=== PATIENT | male | born 1980 | race Caucasian/White ===

== ENCOUNTER 2020-01-22 18:19 | Emergency (ER) | payer SELFPAY ==
[2020-01-22 18:37] VITALS: BP 148/81; PULSE 110; RESP 16; TEMP 37; O2SAT 100
--- NOTE | 2020-01-22 18:42 | ED.SKABFB ---
HPI - Skin/Abscess/Foreign Bdy General Chief complaint: Skin/Abscess/Foreign Body Stated complaint: POISON TORI RASH Time Seen by Provider: 01/22/20 18:42 Source: patient Mode of arrival: ambulatory Limitations: no limitations History of Present Illness HPI narrative: Dwight Burris is a 39 yo male with no PMH was exposed to poison tori or sumac on Thursday, broke out on arms and face and abdomen has been taking 100 mg of Benadryl twice daily, right eye almost swollen shut, blisters on both arms. Feels miserable, looks miserable Related Data Allergies Allergy/AdvReac Type Severity Reaction Status Date / Time No Known Allergies Allergy Verified 01/22/20 18:45 Review of Systems Review of Systems: Narrative: CONSTITUTIONAL: Denies fever, chills, sweats. EYES: Denies visual changes, redness, discharge. ENT: Denies rhinorrhea, congestion, sore throat, otalgia. CARDIOVASCULAR: Denies chest pain, palpitations, edema. RESPIRATORY: Denies dyspnea, wheezing, cough GASTROINTESTINAL: Denies abdominal pain, nausea, vomiting, diarrhea. GENITOURINARY: Denies dysuria, hematuria, abnormal discharge SKIN: Poison tori or sumac on both arms and on face with right swollen eye NEUROLOGIC: Denies numbness, or focal weakness. PSYCHIATRIC: Denies anxiety or depression. PMFSH Past Medical History Medical History No active medical problems Family History Family History Other No active medical problems Social History Social History (Updated 01/22/20 @ 19:12 by Camelia Almanza CNP) Smoking status: Never smoker Alcohol intake: never Gender identity (if verbalized by the patient): Male Comments At time of signature, I agree with nursing past medical, surgical, social and family history. There is no relevant family history pertinent to the presenting complaint. Patient has a PCP; blood pressure is elevated due to situation and being in express care with severe poison tori- will follow-up with PCP Exam Narrative: Exam Narrative: GENERAL: This is a well-nourished, well-developed patient, in moderate distress. HEAD: normocephalic, atraumatic. EYES: Sclera clear/white. Vision is grossly intact. Right periorbital edema sclera is clear EARS: External ears normal, . Hearing grossly intact. NOSE: External nose normal without nasal discharge, nares without redness, no rhinorrhea. THROAT: Mucous membranes moist, NECK: Neck supple, non-tender CARDIOVASCULAR: Tachycardic rate and rhythm without murmurs, gallops, or rubs. RESPIRATORY: Clear to auscultation. Breath sounds equal bilaterally. No wheezes, rales, or rhonchi. GASTROINTESTINAL: Abdomen soft, non-tender, SKIN: warm, intact rash on upper torso and face; blisters on arms; swelling of face; patient can swallow but has been sleeping a lot NEURO: awake, alert, and oriented to person, place and time. There were no obvious focal neurologic abnormalities. Steady gait EXTREMITIES: Normal range of motion. BACK: Nontender without deformity Course Course Emergency Course: Given Solu-Medrol and Pepcid here, patient has been taking Benadryl Given prednisone, Pepcid, Benadryl to take over the next 4 to 5 days Discussed watching all of his close shoes and if hands touched the sumac or poison tori Keep skin clean and dry Follow-up with PCP Vital Signs Vital signs: Vital Signs Temperature 98.6 F 01/22/20 18:37 Pulse Rate 110 H 01/22/20 18:37 Respiratory Rate 16 01/22/20 18:37 Blood Pressure 148/81 H 01/22/20 18:37 Pulse Oximetry 100 01/22/20 18:37 Temperature 98.6 F 01/22/20 18:37 Pulse Rate 110 H 01/22/20 18:37 Respiratory Rate 16 01/22/20 18:37 Blood Pressure 148/81 H 01/22/20 18:37 Pulse Oximetry 100 01/22/20 18:37 MDM - Skin/Abscess/Foreign Bdy Differential Diagnosis Differential diagnosis: Likely urticaria, cellulitis, insect bites,
[2020-01-22] MEDS: methylPREDNISolone SOD SUCC 125 MG VIAL IM (18:51)
[2020-01-22] MEDS: FAMOTIDINE 20 MG TABLET PO (18:51)
== END 2020-01-22 19:23 | disposition home or self-care (01) ==
PROVIDERS: Emergency Provider Nurse Practitioner; PCP Emergency Medicine
DX: L23.7 Allergic contact dermatitis due to plants, except food (principal)
CPT/HCPCS: 96372; 99213; A9270; G0463; J2930

== ENCOUNTER 2024-06-20 16:11 | Emergency (ER) | payer OTHER, SELFPAY ==
--- NOTE | ~2024-06-20 | XR_ITS ---
EXAM: XR ankle RT min 3V, XR tibia fibula RT 2V DATE: 06/20/2024 19:03 HISTORY: fall, unable to ambulate . COMPARISON: None available. FINDINGS: Normal mineralization. Oblique fracture of the distal right fibula, at the level of the david int line, with 4 mm posterior displacement. Mild widening of the medial gutter. No lytic or blastic l esion. Joint spaces are maintained. No erosion or periosteal change. Ankle joint effusion. Soft tissu e swelling about the ankle. IMPRESSION: Mild medial joint space widening as can be seen with ligamentous injury. Oblique mildly d isplaced distal right fibular fracture (Reich B). Reviewed, dictated and finalized at location [facility] IMPRESSION: Mild medial joint space widening as can be seen with ligamentous in jury. Oblique mildly displaced distal right fibular fracture (Reich B).
[2024-06-20 16:38] VITALS: BP 170/91; PULSE 86; RESP 18; TEMP 36.3; O2SAT 100
--- NOTE | 2024-06-20 18:41 | ED.LOWEXIN ---
HPI - Extremity Injury (Lower) General Chief Complaint: Extremity Injury, Lower Stated Complaint: right lower leg pain - fell Time Seen by Provider: 06/20/24 18:41 Focused HPI: Patient is a 43 y/o male who presents to the ED with c/o R lower leg pain. Patient reports he tripped on the edge of a sidewalk and fell. States he feels like his R lower leg snapped when he fell. C/o pain to his R lower leg and ankle. States he is unable to ambulate due to the pain. States he had to use a 2x4 as a crutch to get to the ED. Has not taken anything for pain. Denies any other injuries. Denies HI/LOC. Reports chronic swelling in BLE GENERAL: Well-appearing, well-nourished, and in no acute distress. HEAD: Normocephalic, atraumatic. CHEST: Clear to auscultation. ?No respiratory distress. HEART: Regular rate and rhythm.? MSK: TTP throughout R lower leg, lateral malleoli, R lateral fibula. Diffuse symmetric edema in BLE. NEURO: ?Alert and oriented x3. Patient screened in triage and initial orders placed.? ?Additional care and disposition to be based upon?diagnostic testing and treatment. Source: patient Mode of arrival: ambulatory Limitations: no limitations History of Present Illness HPI Narrative: Patient is a 43 y/o male who presents to the ED with c/o R lower leg pain. Patient reports he tripped on the edge of a sidewalk and fell. States he feels like his R lower leg snapped when he fell. C/o pain to his R lower leg and ankle. States he is unable to ambulate due to the pain. States he had to use a 2x4 as a crutch to get to the ED. Has not taken anything for pain. Denies any other injuries. Denies HI/LOC. Reports chronic swelling in BLE Related Data Allergies Allergy/AdvReac Type Severity Reaction Status Date / Time No Known Allergies Allergy Verified 01/22/20 18:45 Review of Systems Review of Systems: All systems reviewed & are unremarkable except as noted in HPI. All systems reviewed & are unremarkable except as noted in HPI and below PMFSH Past Medical History Medical History No active medical problems Family History Family History Other No active medical problems Social History Social History Smoking status: Never smoker Alcohol intake: never Gender identity (if verbalized by the patient): Male Exam Narrative: GENERAL: Well-appearing, obese with BMI of 35.0, and in no acute distress. HEAD: Normocephalic, atraumatic. CHEST: Clear to auscultation. ?No respiratory distress. HEART: Regular rate and rhythm.? MSK: TTP throughout R lower leg, lateral malleoli of ankle, R lateral distal fibular region. Sensation intact. Diffuse symmetric edema in BLE. Pedal pulses intact. SKIN: Clean, dry, intact NEURO: ?Alert and oriented x3. PSYCHIATRIC: Normal mood and affect. Course Vital Signs Vital signs: Vital Signs Temperature 97.3 F L 06/20/24 16:38 Pulse Rate 86 06/20/24 16:38 Respiratory Rate 18 06/20/24 16:38 Blood Pressure 170/91 H 06/20/24 16:38 Pulse Oximetry 100 06/20/24 16:38 Temperature 97.3 F L 06/20/24 16:38 Pulse Rate 86 06/20/24 16:38 Respiratory Rate 18 06/20/24 16:38 Blood Pressure 170/91 H 06/20/24 16:38 Pulse Oximetry 100 06/20/24 16:38 MDM - Extremity Injury (Lower) MDM Narrative Medical decision making narrative: MSE by AUGUSTINE in triage. Care resumed by myself. Patient?s injury is consistent with musculoskeletal etiology. No signs of neurologic or vascular compromise on physical examination. Compartments are soft without signs of compartment syndrome. X-ray imaging showing distal fibular fracture. Also showing possible ligamentous injury with medial joint space widening. Consistent with clinical picture and injury. Patient updated on imaging results. Given pain medication in the ED. Placed in short leg posterior splint. Given crutches. Advised will need to follow-up with orthopedics for further evaluation management of fracture. Discussed RICE therapy, strict return precautions. Patient in agreement with plan. Feels comfortable going home. Has a ride from the ED. Discharged in stable condition. Medical Records Attestation: I reviewed the patient's medical records. Imaging Data Attestation: I personally reviewed and interpreted this imaging study as follows: Radiologist's impression: ITS Impressions Ankle X-Ray 06/20/24 19:10 IMPRESSION: Mild medial joint space widening as can be seen with ligamentous injury. Oblique mildly displaced distal right fibular fracture (Reich B). Tibia/Fibula X-Ray 06/20/24 19:10 IMPRESSION: Mild medial joint space widening as can be seen with ligamentous injury. Oblique mildly displaced distal right fibular fracture (Reich B). Discharge Plan Discharge Clinical Impression: Fall from ground level Fracture of fibula Qualifiers: Encounter type: initial encounter Fibula location: distal Fracture type: closed Fracture morphology: unspecified fracture morphology Laterality: right Qualified Code(s): S82.831A - Other fracture of upper and lower end of right fibula, initial encounter for closed fracture Ankle joint effusion Qualifiers: Laterality: right Qualified Code(s): M25.471 - Effusion, right ankle Patient Disposition: Home, Self-Care Condition: Stable Instructions: Antibiotic Form, Ankle Fracture (ED), Ankle Sprain (ED), Splint Care (ED) Additional Instructions: Call orthopedic office tomorrow to make follow up appointment for further evaluation of fracture. Utilize crutches for assistance with walking. Avoid weight-bearing on right leg. Wear splint until seen by orthopedics. Keep leg elevated as much as possible, use ice to ankle frequently. Continue Tylenol and ibuprofen as needed for pain. Utilize [place] as needed for more severe pain. Return to the ED if you experience recurrent injury, worsening pain or swelling, numbness, or any other symptoms of concern. Patient Language: Estonian Prescriptions: New hydrocodone-acetaminophen 5-325 mg tablet 1 tablet PO Q6H PRN (Reason: pain) Qty: 15 0RF No Action prednisone 20 mg tablet 40 mg PO DAILY Qty: 10 0RF famotidine [Pepcid] 20 mg tablet 20 mg PO BID Qty: 10 0RF Benadryl 2 % gel 1 applic TOPICAL TID PRN (Reason: itching) Qty: 103 0RF Follow-up/Referrals: Yefri Mohr MD [Primary Care Provider] - Mohinder Huynh MD [Physician] - (ORTHOPEDICS) Time of Disposition: 19:40
[2024-06-20] MEDS: HYDROcodone/acetaminophen (*CRX) 5-325 MG TABLET 1 TAB PO (18:45)
--- NOTE | 2024-06-23 15:41 | PC.NURSE ---
LATE ENTRY This note is being entered to document information to the patient's record. The following information was omitted on [06/20/24], by [Uma Zayas RN]. Short leg posterior splint applied to Right leg per tech.
== END 2024-06-20 20:02 | disposition home or self-care (01) ==
PROVIDERS: Emergency Provider Physician Assistant; PCP Emergency Medicine
DX: S82.831A Other fracture of upper and lower end of right fibula, initial encounter for closed fracture (principal); M25.471 Effusion, right ankle; W18.09XA Striking against other object with subsequent fall, initial encounter
CPT/HCPCS: 29515; 73590; 73610; 99284; A9270

== ENCOUNTER 2024-06-28 00:43 | Day surgery (SDC) | payer OTHER, SELFPAY ==
[2024-06-23 12:20] VITALS: BMI 36.0
--- NOTE | 2024-06-23 12:21 | PC.NURSE ---
Report to the Outpatient Waiting Room, entrance under the green pavilion located off [facility], at time _1230_ on date _[id number]_. Planned Procedure Time: _230pm_.? Time changes happen often and if your time is changed the preop area will call you the afternoon before. - You and your visitor will be asked to self-screen and do not enter if you have any COVID symptoms. Please call surgeon if you need to reschedule. - A mask is optional within the hospital at this time. Patients may have clear liquids (water, carbonated beverages, clear teas, apple juice) until 3 hours prior to surgery with a maximum of 20 ounces. - No food from midnight until time of surgery and no smoking, or chewing tobacco (or any form of nicotine). No chewing gum, candy or mints. Take only the following medications with a SIP of water on the morning of surgery: __Hydrocodone or Acetaminophen if needed for pain. DO NOT STOP ANY OF YOUR OTHER PRESCRIPTION MEDICATIONS PRIOR TO SURGERY EXCEPT THE FOLLOWING Hold all vitamins and supplements for 3 days per anesthesiologist. Medications to discontinue per physician ___None Date to take last dose Please no make-up, nail bruneian, hairspray, perfume, deodorant, or body powder the day of surgery.? No jewelry (including any body piercings) or valuables the day of surgery, leave them at home.? Please take a shower or bath the night before, or the morning of, surgery with an antibacterial soap.? Wear comfortable, loose fitting clothing.? - Jewelry must be removed prior to entering the operating room.? Rings and piercings that are not removed may be cut off. - The hospital will not accept responsibility for valuables.? - Please leave all valuables, including medications, at home the day of surgery. If you are going home after surgery, a licensed hazmat cdl driver must drive you home.? - NO public transportation without another adult if you receive anesthesia. - We recommend that an adult stay with you for 24 hours following discharge. - We also recommend that you do not drive, make important decision, drink alcoholic beverages, or take any drugs that were not prescribed by your health care provider for at least 24 hours after your discharge time. Follow any additional instructions given to you from your surgeon. Telephone instructions given to _Fred___and asked if any additional questions and then verbalized understanding. Patient advised to call surgeon office or pre surgery nurse liaison [phone] if any additional questions.
[2024-06-28] VITALS (8 sets, daily range): BP systolic 127–155; BP diastolic 70–84; PULSE 55–80; RESP 10–14; TEMP 36.1–36.6; O2SAT 97–100
--- NOTE | ~2024-06-28 | XR_ITS ---
INTRAOPERATIVE FLUOROSCOPY: CLINICAL HISTORY: 43 years old Male; ORIF RIGHT DISTAL FIBULA PROCEDURE COMMENTS: Limited intraoperative fluoroscopy of the right ankle was performed. CUMULATIVE DOSE: 3.4 mGy FLUOROSCOPY TIME: 48.4 seconds FINDINGS/IMPRESSION: Please refer to operative note for further details. Reviewed, dictated and finalized at location [facility]. [facility]
--- NOTE | 2024-06-28 09:54 | WPDHPUPDATE1 ---
History and Physical Update Update Date/Time: 06/28/24 09:54 History and Physical has been reviewed, including an updated exam of the patient. There are NO changes in the patient's condition. Risks, benefits, and alternatives have been discussed and questions answered. Patient agrees to proceed with procedure.
--- NOTE | 2024-06-28 12:55 | WPDANESEPPF ---
Anes - Initial Pre Proc Eval Procedure: Operation Date: 06/28/24 14:30 Proposed Procedures p Open Reduction Internal Fixation Right Distal Fibula - Mohinder Huynh MD Date/Time: 06/28/24 12:55 Surgeon: Mohinder Huynh MD Pre Op Diagnosis: Right Distal Fibula Fx Patient Data Age: 43 Gender: M Height: 1.88 m Weight: 127.3 kg Allergies Allergy/AdvReac Type Severity Reaction Status Date / Time No Known Allergies Allergy Verified 06/23/24 12:14 Home Medications ?Medication ?Instructions ?Recorded ?Confirmed ?Type diphenhydramine HCl 2 % topical 1 applic topical TID PRN itching 01/22/20 06/23/24 Rx gel (Benadryl) #103 mL acetaminophen 325 mg tablet 650 mg PO Q6H PRN fever or pain 06/23/24 06/23/24 History oxycodone-acetaminophen 5 mg-325 1 - 2 tablet PO Q4-6H PRN pain 7 06/28/24 Rx mg tablet days #30 tabs Patient hx anesthesia problems: none Family hx anesthesia problems: none Results Review: All pre-operative results and documents have been reviewed as part of the pre-operative evaluation. [facility] [place] Past Medical History Medical History (Updated 06/28/24 @ 12:55 by Erwin Bueno MD) Obesity Family History Family History Other No active medical problems Social History Social History Smoking status: Never smoker Alcohol intake: never Gender identity (if verbalized by the patient): Male Anes - Eval Final PreProcedure Day of Procedure 06/28/24 12:55 Patient weight: obese Heart: regular rate and rhythm Lungs: clear to auscultation Airway: Mallampati scale class II Neurological: alert and oriented Last oral intake: >/= 8 hours ASA classification: II Emergent: no Anesthetic plan: proceed Anesthesia type and monitoring: general LMA and standard monitoring Results Review: All pre-operative results and documents have been reviewed as part of the pre-operative evaluation. Informed Consent: The patient's anesthetic plan and its attendant risks and benefits were discussed with the patient/family/POA. Questions were solicited and answers provided to the satisfaction of the patient/family/POA.
[2024-06-28] MEDS: ACETAMINOPHEN 500 MG TABLET 1000 MG PO (13:00)
[2024-06-28] MEDS: KETOROLAC 15 MG/ML VIAL (*BKC) IV PUSH (13:00)
[2024-06-28] MEDS: LACTATED RINGERS 1,000 ML 30 ML IV CONT (13:00)
[2024-06-28] MEDS: ceFAZolin 3 GM/D5W 100 ML 100 ML IVPB (13:04)
[2024-06-28] MEDS: BUPIVACAINE/EPINEPHRINE 0.5% 50 ML VIAL 20 ML INFILTRATE (13:37)
--- NOTE | 2024-06-28 16:17 | W.PM.PROC2 ---
Procedure Note - Detailed Date of Procedure 06/28/24 Pre-op Diagnosis Right ankle distal fibula fracture Post-op Diagnosis Other (1. Right ankle displaced distal fibular fracture 2. Right ankle tib fib syndesmosis sprain) Procedure Performed 1. ORIF right ankle lateral malleolus 2. ORIF right ankle tib fib syndesmosis with suture button Surgeon Mohinder Huynh MD Anesthesia General Findings The fracture was mildly displaced and shortened. After stable anatomic fixation the ankle mortise was stressed and found to be gapping slightly. This suggested a moderate syndesmosis injury. This was treated with a single tight rope suture button across the tib-fib syndesmosis. Patient has chronic lower extremity edema. Swelling from the injury was much improved and the skin had good wrinkles prior to the start of the procedure. Closure was without undue tension. Description of Procedure A general anesthetic was administered. The limb was prepped and draped in the usual sterile fashion with a well-padded tourniquet high on the thigh. A bump was placed under the hip. The limb was exsanguinated and the tourniquet inflated to 300 millimeters of mercury during the procedure. A longitudinal incision was created at the distal fibula. Careful dissection was carried down to bone. Perineal nerve branches were protected. The fracture was carefully exposed. Callus and debris was irrigated from the wound. The fracture was brought out to length. Reduction was accomplished with the reduction forceps. The fixation plate was contoured. Fixation was performed with a combination of cortical and cancellous screws. The ankle mortise was stressed and found to be slightly unstable. There was some notable gapping at the medial clear space. Through the plate the drill was placed across the syndesmosis into the tibia. The button was inserted and deployed on the medial aspect of the tibia. The suture limbs were secured and tensioned. Fluoroscopy was used throughout the procedure to confirm anatomic reduction and appropriate placement of the implants. The tourniquet was released. Meticulous hemostasis was obtained. Wound was closed in layers with 2-0 Vicryl suture 3-0 Monocryl suture and 3-0 nylon mattress sutures. A sterile dressing with well padded splint was applied. The patient was extubated and brought to the recovery room in stable condition. There were no complications. Implants Arthrex lateral fibula anatomic plate. Arthrex tight rope suture button Estimated Blood Loss 20 Drains No Packing No Pathology None sent Complications No immediate complications Condition Stable Disposition PACU [facility] Billing Surgery - Charge Forward: Surgery Billing
== END 2024-06-28 16:31 | disposition home or self-care (01) ==
PROVIDERS: PCP Emergency Medicine; Visit Provider Orthopaedic Surgery
PROC: (CPT 27792; principal; 2024-06-28 14:30)
DX: S82.61XA Displaced fracture of lateral malleolus of right fibula, initial encounter for closed fracture (principal); X50.1XXA Overexertion from prolonged static or awkward postures, initial encounter; E66.9 Obesity, unspecified; Z68.38 Body mass index [BMI] 38.0-38.9, adult; Z79.891 Long term (current) use of opiate analgesic
CPT/HCPCS: 27792; 27829; 99199; A9270; C1713; J0690; J1100; J1885; J2250; J2405; J2704; J3010; J7120

== ENCOUNTER 2024-07-28 23:02 | Emergency (ER) | payer OTHER, SELFPAY ==
--- NOTE | ~2024-07-28 | XR_ITS ---
XR knee LT 3V Ordering provider: Ashutosh Dee MD History: . fall, pain . Comparison: October 24, 2009 FINDINGS: BONES: No acute fracture or dislocation. JOINT SPACES: Normal. SOFT TISSUES: Normal. IMPRESSION: No acute osseous abnormality left knee. Reviewed, dictated and finalized at location A.
[2024-07-28 23:05] VITALS: BP 168/87; PULSE 95; RESP 18; TEMP 36.6; O2SAT 99
--- NOTE | 2024-07-29 01:04 | ED.LOWEXIN ---
HPI - Extremity Injury (Lower) General Chief Complaint: Extremity Injury, Lower Stated Complaint: leg injury Time Seen by Provider: 07/29/24 00:34 History of Present Illness HPI Narrative: Patient is a 43-year-old male who presents to the ER with left knee pain. He reports he fractured his right ankle approximately 1 month ago so he is using crutches now. Today patient has crutches slid out from under him and his left knee buckled. He is unsure of the mechanism of injury, but he thinks he ?twisted it. Patient reports he has difficulty moving his left lower extremity since the fall. He denies any left pain, recent fevers, previous injuries to the site, new edema. Related Data Home Medications ?Medication ?Instructions ?Recorded ?Confirmed ?Last Taken ?Type acetaminophen 325 mg tablet 650 mg PO Q6H PRN fever or pain 06/23/24 07/11/24 Unknown History hydrocodone 5 mg-acetaminophen 325 1 tablet PO PRN 06/28/24 07/11/24 06/28/24 History mg tablet Allergies Allergy/AdvReac Type Severity Reaction Status Date / Time No Known Allergies Allergy Verified 07/28/24 23:03 Review of Systems Review of Systems: All systems reviewed & are unremarkable except as noted in HPI and below PMFSH Past Medical History Medical History Obesity Family History Family History Other No active medical problems Social History Social History Smoking status: Never smoker Alcohol intake: never Do You Feel Safe in your Home?: Yes Lack of Transportation: YES Lack of Food: Sometimes True Current Housing: I Have Housing Concerned About Future Housing: YES Difficulty Paying Gas/Electric Bills: Decline to Answer Difficulty Paying for Meds: Decline to Answer Currently Unemployed: No Education: High School Diploma/GED Difficulty w/ Childcare or Family Care: No Living arrangements: with family Gender identity (if verbalized by the patient): Male Spiritual care concerns: No Exam Narrative: GENERAL: Disheveled, well-nourished, non-toxic, in no acute distress. HEAD: Normocephalic, atraumatic. NECK: Supple. No adenopathy, no masses. RESPIRATORY: Airway patent, respirations nonlabored. Clear to auscultation bilaterally, no rales, rhonchi, wheezing. CARDIOVASCULAR: Regular rate and rhythm without murmurs, rubs, or gallops. Peripheral pulses 2+ and equal bilaterally. ABDOMINAL: Soft, nontender, nondistended, no hepatosplenomegaly. Normoactive BS. MUSCULOSKELETAL: Moves all extremities. No noticeable L lower extremity swelling. No pain with foot flexion/extension. Negative Gabriel's sign. No pain with external or internal rotation. Endorses pain below patella with L knee flexion, decreased ROM. SKIN: Warm, dry, normal color. No rashes. NEURO: A&O X3. Speech clear. Cranial nerves II-XII grossly intact. PSYCHIATRIC: Flat affect. Normal interaction. Course Vital Signs Vital signs: Vital Signs Temperature 36.6 C 07/28/24 23:05 Pulse Rate 95 07/28/24 23:05 Respiratory Rate 18 07/28/24 23:05 Blood Pressure 168/87 H 07/28/24 23:05 Pulse Oximetry 99 07/28/24 23:05 Oxygen Delivery Room Air 07/28/24 23:05 Temperature 36.6 C 07/28/24 23:05 Pulse Rate 89 07/29/24 01:37 Respiratory Rate 16 07/29/24 01:37 Blood Pressure 156/80 H 07/29/24 01:37 Pulse Oximetry 98 07/29/24 01:37 Oxygen Delivery Room Air 07/28/24 23:05 MDM - Extremity Injury (Lower) MDM Narrative Medical decision making narrative: Patient is a 43-year-old male who presents to the ER with the pain. He reports he had fractured his right ankle approximately 1 month ago so he is using crutches. Today patient has crutches slid out from under him and his left knee buckled. He is unsure of the mechanism of injury, but he thinks he ?twisted it. Patient reports he has difficulty moving his left lower extremity since the fall. He denies any left pain, recent fevers, previous injuries to the site, new edema. Labs Ordered: None necessary Imaging Ordered: Left knee x-ray Medications Ordered: Toradol 60 mg IM, [place] p.o. Results: Left knee x-ray indicates No acute osseous abnormality left knee. Diagnosis: Left knee strain Consults: orthopedics (pt sees Dr. Huynh outpatient) Patient Education/Shared MDM: Results of x-ray shared with patient. He endorses improvement following medication administration. Patient strongly advised to call his orthopedic surgeon tomorrow morning. He will be discharged home with prescription for Naproxen. Strict return precautions provided. Patient verbalized understanding is in agreement with plan. Vital signs stable at time of discharge. All questions answered. Differential Diagnosis Differential diagnosis: Likely acute internal derangement of knee and other (patellar fracture, knee strain, knee sprain) Imaging Data Attestation: I personally reviewed and interpreted this imaging study as follows: Radiologist's impression: Impressions Knee X-Ray 07/28/24 23:28 IMPRESSION: No acute osseous abnormality left knee. Discharge Plan Discharge Clinical Impression: Strain of left patellar tendon, Acute pain of left knee Patient Disposition: Home, Self-Care Condition: Stable Instructions: Antibiotic Form Additional Instructions: Please return to the ER with an worsening symptoms. Call your orthopedic surgeon tomorrow for follow-up. Take all medications as prescribed. Patient Language: Palestinian Prescriptions: New naproxen 500 mg tablet 500 mg PO BID PRN (Reason: pain) Qty: 20 0RF No Action Benadryl 2 % gel 1 applic TOPICAL TID PRN (Reason: itching) Qty: 103 0RF acetaminophen 325 mg tablet 650 mg PO Q6H PRN (Reason: fever or pain) hydrocodone-acetaminophen 5-325 mg tablet 1 tablet PO PRN aspirin 81 mg tablet,delayed release (DR/EC) 81 mg PO BID 14 Days Qty: 28 0RF oxycodone-acetaminophen 5-325 mg tablet 1 - 2 tablet PO Q4-6H PRN (Reason: pain) 7 Days Qty: 30 0RF Follow-up/Referrals: Yefri Mohr MD [Primary Care Provider] - Stand Alone Forms: Work/School Release IP Time of Disposition: 01:18
[2024-07-29] MEDS: KETOROLAC (*BKC) 60 MG/2 ML VIAL IM (01:19)
[2024-07-29] MEDS: HYDROcodone/acetaminophen (*CRX) 5-325 MG TABLET 1 TAB PO (01:19)
[2024-07-29 01:37] VITALS: BP 156/80; PULSE 89; RESP 16; O2SAT 98
== END 2024-07-29 01:44 | disposition home or self-care (01) ==
PROVIDERS: Emergency Provider Registered Nurse; PCP Emergency Medicine
DX: S76.112A Strain of left quadriceps muscle, fascia and tendon, initial encounter (principal); E66.9 Obesity, unspecified; Z68.31 Body mass index [BMI] 31.0-31.9, adult; X50.9XXA Other and unspecified overexertion or strenuous movements or postures, initial encounter
CPT/HCPCS: 73562; 96372; 99283; A9270; J1885

== ENCOUNTER 2024-08-28 10:50 | Outpatient (CLI) | payer OTHER, SELFPAY ==
--- NOTE | ~2024-08-28 | MR_ITS ---
MRI of the left knee Clinical history: Quadriceps strain Technique: Coronal proton density and proton density-weighted images, sagittal proton-density and T2 fat-sat images, and axial proton-density fat-saturated images were acquired. Findings: Anterior and posterior cruciate ligaments are intact. Medial collateral ligament and the la teral collateral ligament complex are intact. Popliteus tendon is intact. Medial and lateral menisci are intact, without evidence of tear. Probable mild chondral malacia patella present. Remaining articular cartilage is well preserved throu ghout the knee. Bone marrow signals are unremarkable. There is near complete rupture of the distal quadriceps tendon, with a few anterior fibers which may remain intact. There is wavy morphology of the patellar tendon, with associated patella baja. There i s moderate to large joint effusion with extensive surrounding soft tissue edema about the prepatellar region and about the distal quadriceps tendon. There is diffuse subcutaneous soft tissue edema about the knee and distal thigh as well. No Espinoza's cyst. Impression: High-grade, near-complete tear/rupture of the distal quadriceps tendon, with a few anterior fibers wh ich appear to remain intact. Associated patella baja with wavy morphology of the patellar tendon. Moderate to large joint effusion with extensive soft tissue edema and fluid in the prepatellar region and about the torn quadriceps tendon. Cruciate ligaments and menisci are intact. Reviewed, dictated and finalized at [facility]. Impression: High-grade, near-complete tear/rupture of the distal quadriceps tendon, with a few anterior fibers which appear to remain intact. Associated patella baja with wavy morphology of the patellar tendon. Moderate to large joint effusion with extensive soft tissue edema and fluid in the prepatellar region and about the torn quadriceps tendon. Cruciate ligaments and menisci are intact.
== END 2024-08-28 10:51 | disposition home or self-care (01) ==
PROVIDERS: PCP Emergency Medicine; Visit Provider Orthopaedic Surgery
DX: S76.112A Strain of left quadriceps muscle, fascia and tendon, initial encounter (principal); M25.462 Effusion, left knee
CPT/HCPCS: 73721

== ENCOUNTER 2024-09-07 12:36 | Outpatient (CLI) | payer OTHER, SELFPAY ==
--- NOTE | ~2024-09-07 | XR_ITS ---
XR ankle RT min 3V Ordering provider: LYNN Roca History: . Z98.890 - Other specified postprocedural states . Comparison: July 11, 2024 FINDINGS: BONES: Postoperative changes in the medial and lateral malleoli. Healing fracture seen posteriorly in the tibia and fibula JOINT SPACES: Normal. SOFT TISSUES: Soft tissue swelling over the medial and lateral malleoli. IMPRESSION: Postoperative changes with healing fracture in the distal ulna. Healing fracture in the distal tibia is also possible. Reviewed, dictated and finalized at location A. IMPRESSION: Postoperative changes with healing fracture in the distal ulna. Healing fractur e in the distal tibia is also possible.
== END 2024-09-07 12:37 | disposition home or self-care (01) ==
PROVIDERS: PCP Emergency Medicine; Visit Provider Physician Assistant Surgical
DX: Z98.890 Other specified postprocedural states (principal); Z87.81 Personal history of (healed) traumatic fracture
CPT/HCPCS: 73610

== ENCOUNTER 2024-09-15 01:54 | Day surgery (SDC) | payer OTHER, SELFPAY ==
[2024-09-09 13:32] VITALS: BMI 38.6
--- NOTE | 2024-09-09 13:39 | PC.NURSE ---
Report to the Outpatient Waiting Room, entrance under the green pavilion located off [facility], at time _1130_ on date _[id number]_. Planned Procedure Time: _130pm_.? Time changes happen often and if your time is changed the preop area will call you the afternoon before. - You and your visitor will be asked to self-screen and do not enter if you have any COVID symptoms. Please call surgeon if you need to reschedule. - A mask is optional within the hospital at this time. Patients may have clear liquids (water, carbonated beverages, clear teas, apple juice) until 3 hours prior to surgery with a maximum of 20 ounces. - No food from midnight until time of surgery and no smoking, or chewing tobacco (or any form of nicotine). No chewing gum, candy or mints. Take only the following medications with a SIP of water on the morning of surgery: __Pain pill if needed. DO NOT STOP ANY OF YOUR OTHER PRESCRIPTION MEDICATIONS PRIOR TO SURGERY EXCEPT THE FOLLOWING Hold all vitamins and supplements for 3 days per anesthesiologist. Medications to discontinue per physician ___Naproxen____ Date to take last dose____stop now.___ Please no make-up, nail bulgarian, hairspray, perfume, deodorant, or body powder the day of surgery.? No jewelry (including any body piercings) or valuables the day of surgery, leave them at home.? Please take a shower or bath the night before, or the morning of, surgery with an antibacterial soap.? Wear comfortable, loose fitting clothing.? - Jewelry must be removed prior to entering the operating room.? Rings and piercings that are not removed may be cut off. - The hospital will not accept responsibility for valuables.? - Please leave all valuables, including medications, at home the day of surgery. If you are going home after surgery, a licensed lumber stacker driver must drive you home.? - NO public transportation without another adult if you receive anesthesia. - We recommend that an adult stay with you for 24 hours following discharge. - We also recommend that you do not drive, make important decision, drink alcoholic beverages, or take any drugs that were not prescribed by your health care provider for at least 24 hours after your discharge time. Follow any additional instructions given to you from your surgeon. Telephone instructions given to __Fred___and asked if any additional questions and then verbalized understanding. Patient advised to call surgeon office or pre surgery nurse liaison [phone] if any additional questions.
[2024-09-15] VITALS (10 sets, daily range): BP systolic 97–156; BP diastolic 47–90; PULSE 64–87; RESP 11–21; TEMP 36.6–37.2; O2SAT 96–100
--- NOTE | 2024-09-15 07:15 | WPDHPUPDATE1 ---
History and Physical Update Update Date/Time: 09/15/24 07:15 History and Physical has been reviewed, including an updated exam of the patient. There are NO changes in the patient's condition. Risks, benefits, and alternatives have been discussed and questions answered. Patient agrees to proceed with procedure.
--- NOTE | 2024-09-15 12:07 | P.PNAN_ITS ---
Anes - Initial Pre Proc Eval Procedure: Operation Date: 09/15/24 13:30 Proposed Procedures p Left Quadriceps Tendon Repair - Mohinder Hyunh MD Date/Time: 09/15/24 12:07 Surgeon: Mohinder Huynh MD Pre Op Diagnosis: quadriceps tendon rupture Patient Data Age: 43 Gender: M Height: 1.88 m Weight: 136.4 kg Allergies Allergy/AdvReac Type Severity Reaction Status Date / Time No Known Allergies Allergy Verified 09/09/24 13:30 Home Medications ?Medication ?Instructions ?Recorded ?Confirmed ?Type diphenhydramine HCl 2 % topical 1 applic topical TID PRN itching 01/22/20 09/09/24 Rx gel (Benadryl) #103 mL acetaminophen 325 mg tablet 650 mg PO Q6H PRN fever or pain 06/23/24 09/09/24 History naproxen 500 mg tablet 500 mg PO BID PRN pain #20 tabs 07/29/24 09/09/24 Rx aspirin 81 mg tablet,delayed 81 mg PO BID 14 days #28 tabs 09/15/24 Rx release oxycodone-acetaminophen 5 mg-325 1 - 2 tablet PO Q4-6H PRN pain 7 09/15/24 Rx mg tablet days #30 tabs Patient hx anesthesia problems: none Family hx anesthesia problems: none Results Review: All pre-operative results and documents have been reviewed as part of the pre- operative evaluation. [facility] Past Medical History Medical History Obesity Family History Family History Other No active medical problems Social History Social History Smoking status: Never smoker Alcohol intake: former Do You Feel Safe in your Home?: Yes Lack of Transportation: YES Lack of Food: Sometimes True Current Housing: I Have Housing Concerned About Future Housing: YES Difficulty Paying Gas/Electric Bills: Decline to Answer Difficulty Paying for Meds: Decline to Answer Currently Unemployed: No Education: High School Diploma/GED Difficulty w/ Childcare or Family Care: No Living arrangements: with family Gender identity (if verbalized by the patient): Male Spiritual care concerns: No Anes - Eval Final PreProcedure Day of Procedure 09/15/24 12:07 Patient weight: obese Heart: regular rate and rhythm Lungs: clear to auscultation Airway: Mallampati scale class II Neurological: alert and oriented Last oral intake: >/= 8 hours ASA classification: III Emergent: no Anesthetic plan: proceed Anesthesia type and monitoring: general LMA and standard monitoring Results Review: All pre-operative results and documents have been reviewed as part of the pre- operative evaluation. Informed Consent: The patient's anesthetic plan and its attendant risks and benefits were discussed with the patient/family/POA. Questions were solicited and answers provided to the satisfaction of the patient/family/POA.
[2024-09-15] MEDS: ACETAMINOPHEN 500 MG TABLET 1000 MG PO (12:45)
[2024-09-15] MEDS: KETOROLAC 15 MG/ML VIAL (*BKC) IV PUSH (12:45)
[2024-09-15] MEDS: LACTATED RINGERS 1,000 ML 30 ML IV CONT ×2 (12:45→14:52)
[2024-09-15] MEDS: ceFAZolin 3 GM/D5W 100 ML 100 ML IVPB (13:02)
[2024-09-15] MEDS: BUPIVACAINE/EPINEPHRINE 0.5% 10 ML VIAL 30 ML INFILTRATE (13:54)
--- NOTE | 2024-09-15 15:18 | W.PM.PROC2 ---
Procedure Note - Detailed Date of Procedure 09/15/24 Pre-op Diagnosis Quadriceps tendon rupture left knee Post-op Diagnosis Same Procedure Performed Quadriceps tendon repair left knee. Surgeon Mohinder Huynh MD Library Serials Assistant Eveline Luna PA-C Anesthesia General Findings Morbidly obese with severe soft tissue swelling. Patient reported another fall recently. Extensive disruption with swelling and chronic appearance. Extensive strip of more superficial quad tendon with attached muscle as well as the primary disruption. The patella was scarred in, in an inferior Baja position. Extensive soft tissue release of the quadriceps and patella was required. The primary tendon tissue was repaired with 3 bone tunnels. Supplemental lateral sutures were performed. The more superficial strip of tendon was overlaid and sewn into the proximal quadriceps tendon for a robust supplemental reconstruction. The tendon was very tight at 20? of flexion. Description of Procedure Preoperative antibiotics were given. General anesthetic was administered. A tourniquet was placed on thigh. The limb was exsanguinated and tourniquet inflated to 3 mmHg for 1st after the procedure prior reconstruction. A longitudinal incision was created over the patella quadriceps tendon and patella tendon. Incision was more extensile due to the nature of the tear and the large size of the patient. Thick bursal scar tissue was released to free up the patella. Large strip of tendon was attached to the superior patella was greater than 10 cm in length and had attached muscle. This was trimmed and then used at the end of the procedure to supplement the repair construction. Two Krackow sutures were woven into the tendon centrally. Three drill holes were placed proximal to distal in the patella and the sutures were shuttled inferiorly. The sutures were tired over this bone tunnel underneath the patellar tendon. The tendon was brought to approximate but were under tension after just 20? of flexion. The superficial tendon was then woven into the more proximal sutures which provided a nice supplement. Medial and lateral retinacular tissues were repaired with interrupted 2. FiberWire and 2. Ethibond and 1. Vicryl. The overlying fascia and bursa tissue was repaired with 1. Vicryl interrupted suture. The subcutaneous were tissues were similarly closed followed by running Quill suture, Steri-Strips, and a sterile dressing. A compressive bandage was wrapped and an the immobilizer was placed. The patient was brought to the recovery room in stable condition. There were no complications. Estimated Blood Loss 100 Drains No Packing No Pathology None sent Complications No immediate complications Condition Stable Disposition PACU [facility] Billing Surgery - Charge Forward: Surgery Billing
[2024-09-15] MEDS: oxyCODONE HCL (*CRX) 5 MG TAB IR PO (16:24)
--- NOTE | 2024-09-15 17:18 | SUR.PHASEII ---
1705: patient getting dressed but otherwise ready for dc.
== END 2024-09-15 17:23 | disposition home or self-care (01) ==
PROVIDERS: PCP Emergency Medicine; Visit Provider Orthopaedic Surgery
PROC: (CPT 27385; principal; 2024-09-15 13:30)
DX: S76.112A Strain of left quadriceps muscle, fascia and tendon, initial encounter (principal); W01.0XXA Fall on same level from slipping, tripping and stumbling without subsequent striking against object, initial encounter; E66.9 Obesity, unspecified; Z68.39 Body mass index [BMI] 39.0-39.9, adult
CPT/HCPCS: 27385; A9270; J0690; J1100; J1171; J1885; J2003; J2250; J2405; J2704; J3010; J7120

== ENCOUNTER 2024-10-19 09:46 | Outpatient (CLI) | payer OTHER, SELFPAY ==
--- NOTE | ~2024-10-19 | XR_ITS ---
Right ankle Technique: AP, oblique, and lateral views were obtained. Clinical History: Post procedural state COMPARISON: 09/07/2024 Findings: No acute fracture or dislocation is seen. Status post orthopedic fixation of the lateral ma lleolus/distal fibula with additional syndesmotic hardware present.. Ankle mortise and other visualiz ed joint spaces are preserved. Soft tissues are otherwise unremarkable. Impression: No acute abnormality. Stable orthopedic hardware, as above. Reviewed, dictated and finalized at location M. Impression: No acute abnormality. Stable orthopedic hardware, as above.
== END 2024-10-19 09:47 | disposition home or self-care (01) ==
PROVIDERS: PCP Emergency Medicine; Visit Provider Physician Assistant Surgical
DX: Z98.890 Other specified postprocedural states (principal); Z87.81 Personal history of (healed) traumatic fracture
CPT/HCPCS: 73610